=== PATIENT | male | born 1965 | race Caucasian/White ===

== ENCOUNTER 2024-02-27 06:50 | Emergency (ER) | payer SELFPAY ==
[~2024-02-27] VITALS: Ht 170.2 cm; Wt 82.0 kg
[2024-02-27 06:56] VITALS: BP 159/97; PULSE 95; RESP 18; TEMP 98.3; O2SAT 97
[2024-02-27] MEDS: IBUPROFEN 600MG TABLET PO ONE (08:50)
== END 2024-02-27 09:37 | disposition home or self-care (01) ==
LOC: ER 06:50
DX: R07.81 Pleurodynia (principal); M25.561 Pain in right knee; M25.571 Pain in right ankle and joints of right foot; M54.9 Dorsalgia, unspecified; V98.8XXA Other specified transport accidents, initial encounter; Y93.89 Activity, other specified; Y92.89 Other specified places as the place of occurrence of the external cause; Y99.8 Other external cause status
CPT/HCPCS: 71045; 73562; 73610; 99284